=== PATIENT | female | born 1945 | race Caucasian/White ===

== ENCOUNTER 2022-03-13 13:12 | Inpatient (IN) | payer MEDICARE ==
[2022-03-13] MEDS ORDERED: MORPHINE SULFATE 4 MG/ML SYRINGE IVP STA (14:37)
[2022-03-13] MEDS ORDERED: ACETAMINOPHEN TAB 325 MG TAB PO PRN (14:40)
[2022-03-13] MEDS ORDERED: HYDROcodone/APAP 5-325MG 1 EACH TAB PO PRN (14:40)
[2022-03-13] MEDS ORDERED: NALOXONE 0.4 MG/ML 1 ML VIAL IV PRN (14:40)
--- NOTE | 2022-03-13 14:40 | ED ---
General Adult HPI - General Chief complaint: Altered Mental Status Stated complaint: cancer pt, pain management Time Seen by Provider: 03/13/22 13:21 Source: patient, family, RN/MD (I did speak with Dr. Barnett who would like patient admitted with pulmonary consult), RN notes reviewed Mode of arrival: ambulatory Limitations: no limitations - History of Present Illness Initial comments: Patient is a pleasant 76. Female presenting to emergency Department with concerns for lung mass. Patient had computed tomography scan done at outside facility a week ago with right upper lung mass 4 cm. Patient has been having right shoulder discomfort and intermittent shortness of breath however worse of breath is chronic. A leiva has had a little bit of forgetfulness over the past week. - Related Data Allergies Allergy/AdvReac Type Severity Reaction Status Date / Time No Known Allergies Allergy Verified 03/13/22 13:35 Review of Systems ROS Statement: Those systems with pertinent positive or pertinent negative responses have been documented in the HPI. ROS Other: All systems not noted in ROS Statement are negative. Constitutional: Denies: fever Eyes: Denies: eye pain ENT: Denies: ear pain Respiratory: Reports: as per HPI, dyspnea Cardiovascular: Denies: chest pain Endocrine: Denies: fatigue Gastrointestinal: Denies: abdominal pain Genitourinary: Denies: dysuria Musculoskeletal: Reports: as per HPI Skin: Denies: rash Neurological: Reports: as per HPI, confusion. Denies: weakness Past Medical History Past Medical History: Cancer, COPD History of Any Multi-Drug Resistant Organisms: None Reported Additional Past Surgical History / Comment(s): AAA repair Past Psychological History: No Psychological Hx Reported Smoking Status: Current every day smoker Past Alcohol Use History: None Reported Past Drug Use History: None Reported General Exam Limitations: no limitations General appearance: alert, in no apparent distress Head exam: Present: atraumatic, normocephalic Eye exam: Present: normal appearance, PERRL, EOMI ENT exam: Present: normal oropharynx Neck exam: Present: normal inspection Respiratory exam: Present: wheezes (Mild). Absent: respiratory distress Cardiovascular Exam: Present: regular rate, normal rhythm GI/Abdominal exam: Present: soft. Absent: tenderness Extremities exam: Present: normal inspection Back exam: Present: tenderness (Minimal tenderness right scapular region) Neurological exam: Present: alert Psychiatric exam: Present: normal affect, normal mood Skin exam: Present: normal color Course Vital Signs 03/13/22 13:35 Temperature 97.2 F L Pulse Rate 86 Respiratory 16 Rate Blood Pressure 121/74 O2 Sat by Pulse 100 Oximetry Medical Decision Making - Medical Decision Making Case was earlier discussed with Dr. Barnett who wants patient admitted for pain control and pulmonary consult and MRI of the brain. Family is made aware of plan as well as patient. Case also discussed with Dr. Christensen, who will admit for Dr. crowley. Disposition Clinical Impression: Altered mental status, Lung mass Disposition: ADMITTED IP TO THIS HOSP Is patient prescribed a controlled substance at d/c from ED?: No Time of Disposition: 15:01
--- NOTE | 2022-03-13 14:50 | XR ---
EXAMINATION TYPE: XR chest 2V DATE OF EXAM: 03/13/2022 COMPARISON: 11/25/2012 INDICATION: Lung mass TECHNIQUE: Frontal and lateral views of the chest are obtained. FINDINGS: The heart size is normal. The pulmonary vasculature is normal. There is a posterior right upper lobe opacification. Findings can be compatible with patient's lung mass. IMPRESSION: 1. Right upper lobe consolidation can correlate with the patient's reported neoplasm.
[2022-03-13 15:26] LABS: Basophils # (A) 0.1 k/uL (0-0.2); Basophils % (A) 1 %; Eosinophils % (A) 0 %; HCT 31.9 % (34.0-46.0); HGB 9.7 gm/dL (11.4-16.0); Hypochromasia Moderate; Lymphocytes # (A) 0.6 k/uL (1.0-4.8); Lymphocytes % (A) 6 %; MCH 26.2 pg (25.0-35.0); MCHC 30.6 g/dL (31.0-37.0); MCV 85.7 fL (80.0-100.0); Mean Platelet Volume 8.1; Monocytes # (A) 0.5 k/uL (0-1.0); Monocytes % (A) 5 %; Neutrophils # (A) 9.9 k/uL (1.3-7.7); Neutrophils % (A) 88 %; Platelet Count 316 k/uL (150-450); RBC 3.72 m/uL (3.80-5.40); RDW 14.9 % (11.5-15.5); WBC 11.3 k/uL (3.8-10.6)
[2022-03-13 15:39] LABS: ALT 13 U/L (4-34); AST 22 U/L (14-36); African American GFR (CKD) >90 (>60 ml/min/1.73 sqM); Albumin 3.8 g/dL (3.5-5.0); Alkaline Phosphatase 85 U/L (38-126); Anion Gap 10 mmol/L; Blood Urea Nitrogen 14 mg/dL (7-17); Calcium 9.8 mg/dL (8.4-10.2); Carbon Dioxide 30 mmol/L (22-30); Chloride 96 mmol/L (98-107); Glucose 100 mg/dL (74-99); Non-African American GFR(CKD) 89 (>60 ml/min/1.73 sqM); Potassium 3.1 mmol/L (3.5-5.1); Sodium 136 mmol/L (137-145); Total Bilirubin 0.6 mg/dL (0.2-1.3); Total Protein 7.3 g/dL (6.3-8.2)
[2022-03-13 15:41] LABS: Partial Thromboplastin Time 22.4 sec (22.0-30.0); Prothrombin Time 10.7 sec (9.0-12.0)
[2022-03-13] MEDS: MORPHINE SULFATE 4 MG/ML SYRINGE IV PRN ×2 (17:27→22:05)
[2022-03-13] MEDS: ALBUTEROL NEBULIZED 2.5 MG/3 ML INHALATION SCH (19:40)
[2022-03-13] MEDS ORDERED: ALBUTEROL NEBULIZED 2.5 MG/3 ML INHALATION PRN (19:43)
--- NOTE | 2022-03-13 22:37 | MR ---
EXAMINATION TYPE: MR brain wo/w con DATE OF EXAM: 03/13/2022 COMPARISON: None HISTORY: ams, lung mass CONTRAST: Standard multiplanar, multisequence MRI departmental protocol images were obtained without contrast a nd with 4 mL intravenous Gadavist gadolinium contrast. There is diffuse cerebral cortical atrophy. There is no mass effect nor midline shift. No evidence of intracranial hemorrhage. Diffusion images show no sign of an acute infarct. there are scattered are as of white matter increased signal around the lateral ventricles that measure up to 8 mm. Total numb ers less than 20. The brainstem is intact. Cerebellum is intact. There is thinning of the corpus call osum. There is endplate spur formation posteriorly at C4-5 with some spinal stenosis and effacement o f the spinal cord. The contrast images show normal enhancement of the venous sinuses. I see no pathologic enhancement. IMPRESSION: Cerebral atrophy. White matter signal changes that are nonenhancing and consistent with some microvas cular ischemia. Demyelinating disease also possible. No evidence of metastatic disease.
[2022-03-14] MEDS: FAMOTIDINE 20 MG TAB PO SCH ×2 (07:18→08:25)
--- NOTE | 2022-03-14 08:06 | P.CNPUL ---
History of Present Illness Consult date: 03/13/22 Reason for consult: lung mass History of present illness: This is a 76 year old female patient who was admitted through the oncology office for a right upper mass. This patient has been experiencing pain across the right lateral posterior chest wall and for that reason the patient was admitted to [facility] with a CAT scan of the chest was done on 03/05/2022 and the patient was found to have a large cavitating mass in the right upper lobe which was very much occupying the entire right upper lobe area with central cavitation and surrounding airspace disease. There is also evidence of mediastinal lymphadenopathy and addition to extensive emphysema bilaterally. The patient is a chronic smoker who continues to smoke a half pack of cigarettes a day. She's been experiencing exertional dyspnea, weight loss, diminished appetite and addition to right lateral chest wall pain. No pleurisy. No hemoptysis. The patient has been also having some altered mentation, episodic, without any focal neurological deficits. She was seen at oncologist's office and she was admitted to the hospital to expedite her workup. Daughters at the bedside. Unsure if they want to proceed with a lung biopsy. Review of Systems Constitutional: Reports fatigue, Reports weakness, Reports weight loss Eyes: denies as per HPI, denies blurred vision, denies bulging eye, denies decreased vision, denies diplopia, denies discharge, denies dry eye, denies irritation, denies itching, denies pain, denies photophobia, denies loss of peripheral vision, denies loss of vision, denies tunnel vision/blind spots Ears: deny: decreased hearing, ear discharge, earache, tinnitus Ears, nose, mouth and throat: Reports as per HPI Breasts: absent: as per HPI, change in shape, gynecomastia, masses, nipple discharge, pain, skin changes, swelling Cardiovascular: Reports decreased exercise tolerance, Reports shortness of breath Respiratory: Reports cough, Reports dyspnea, Reports wheezing Gastrointestinal: Reports as per HPI Genitourinary: Reports as per HPI Menstruation: Reports as per HPI Musculoskeletal: Reports as per HPI Musculoskeletal: absent: ankle pain, ankle stiffness, ankle swelling Neurological: Reports as per HPI Psychiatric: Reports as per HPI Endocrine: Reports as per HPI Hematologic/Lymphatic: Reports as per HPI Allergic/Immunologic: Reports as per HPI Past Medical History Past Medical History: COPD Additional Past Medical History / Comment(s): AAA with previos AAA repair, COPD History of Any Multi-Drug Resistant Organisms: None Reported Additional Past Surgical History / Comment(s): AAA repair Past Psychological History: No Psychological Hx Reported Smoking Status: Current every day smoker Past Alcohol Use History: None Reported Past Drug Use History: None Reported Medications and Allergies Home Medications Medication Instructions Recorded Confirmed Type Albuterol Sulfate [Albuterol 1 puff PO RT-Q4H 03/13/22 03/13/22 History Sulfate Hfa] Cyanocobalamin (Vitamin B-12) 2,500 mcg PO DAILY 03/13/22 03/13/22 History [Vitamin B-12] Famotidine 40 mg PO DAILY 03/13/22 03/13/22 History Fluticasone/Umeclidin/Vilanter 1 puff INHALATION RT-DAILY 03/13/22 03/13/22 History [Trelegy Ellipta 100-62.5-25] HYDROcodone/APAP 10-325MG [[place] 1 tab PO BID 03/13/22 03/13/22 History 10-325] Allergies Allergy/AdvReac Type Severity Reaction Status Date / Time benzonatate Allergy Vomiting Verified 03/13/22 15:38 Physical Exam Vitals: Vital Signs Temp Pulse Resp BP Pulse Ox 03/13/22 19:48 84 03/13/22 19:43 77 03/13/22 17:31 77 16 122/79 95 03/13/22 16:54 16 03/13/22 13:35 97.2 F L 86 16 121/74 100 Intake and Output 03/13/22 03/13/22 03/14/22 14:59 22:59 06:59 Other: Weight 39.009 kg Calm and comfortable, breathing is nonlabored, body mass index is 16.8 Head exam was generally normal. There was no scleral icterus or corneal arcus. Mucous membranes were moist. Neck was supple and without jugular venous distension, thyromegaly, or carotid bruits. Carotids were easily palpable bilaterally. There was no adenopathy. Lungs sounds are diminished bilaterally along with that there is some scattered expiratory wheezes throughout the lung mauricio Cardiac exam revealed the PMI to be normally situated and sized. The rhythm was regular and no extrasystoles were noted during several minutes of auscultation. The first and second heart sounds were normal and physiologic splitting of the second heart sound was noted. There were no murmurs, rubs, clicks, or gallops. Abdominal exam revealed normal bowel sounds. The abdomen was soft, non-tender, and without masses, organomegaly, or appreciable enlargement of the abdominal aorta. Examination of the extremities revealed easily palpable radial, femoral and pedal pulses. There was no cyanosis, clubbing or edema. Neurologically the patient was awake and alert at the time of my evaluation. No focal neurological deficits. Results - Laboratory Findings CBC and BMP: 03/13/22 15:19 03/13/22 15:19 PT/INR, D-dimer PT 10.7 sec (9.0-12.0) 03/13/22 15:19 INR 1.0 (<1.2) 03/13/22 15:19 Abnormal lab findings: Abnormal Labs 03/13/22 03/13/22 15:19 15:19 WBC 11.3 H RBC 3.72 L Hgb 9.7 L Hct 31.9 L MCHC 30.6 L Neutrophils # 9.9 H Lymphocytes # 0.6 L Sodium 136 L Potassium 3.1 L Chloride 96 L Glucose 100 H - Diagnostic Findings Chest x-ray: image reviewed Assessment and Plan Plan: Large right upper lobe mass with central cavitation along with some peripheral airspace disease and mediastinal lymphadenopathy, highly suggestive underlying primary bronchogenic carcinoma Chest wall pain likely secondary to local invasion from an underlying malignancy COPD Chronic smoking Shortness of breath secondary to above Abdominal aortic aneurysm postrepair Plan MRI of the brain Check pro calcitonin level Hold off any antibiotic coverage for now Use DuoNeb the last treatment [id number] Discussed with the patient and her family the need for bronchoscopy. She was quite hesitant to undergo the procedure. She wanted first to proceed with an MRI of the brain to see if there is any INTEGRATED LOGISTICS PROGRAMS DIRECTOR metastases. Based on that, she was going to make a decision after discussing a consulting this with the family and accordingly decide on the bronchoscopy. Obviously, bronchoscopy will be needed for tissue diagnosis. Case was discussed with oncology.
[2022-03-14] MEDS: MORPHINE SULFATE 4 MG/ML SYRINGE IV PRN ×2 (09:53→23:13)
[2022-03-14] MEDS: ALBUTEROL NEBULIZED 2.5 MG/3 ML INHALATION SCH ×2 (09:58→11:59)
--- NOTE | 2022-03-14 12:22 | P.PN ---
Subjective Progress Note Date: 03/14/22 This is a 76 year old female patient who was admitted through the oncology office for a right upper mass. This patient has been experiencing pain across the right lateral posterior chest wall and for that reason the patient was admitted to [facility] with a CAT scan of the chest was done on 03/05 and the patient was found to have a large cavitating mass in the right upper lobe which was very much occupying the entire right upper lobe area with central cavitation and surrounding airspace disease. There is also evidence of mediastinal lymphadenopathy and addition to extensive emphysema bilaterally. The patient is a chronic smoker who continues to smoke a half pack of cigarettes a day. She's been experiencing exertional dyspnea, weight loss, diminished appetite and addition to right lateral chest wall pain. No pleurisy. No hemoptysis. The patient has been also having some altered mentation, episodic, without any focal neurological deficits. She was seen at oncologist's office and she was admitted to the hospital to expedite her workup. Daughters at the bedside. Unsure if they want to proceed with a lung biopsy. Today's evaluation of 03/14/2022, the patient is clinically stable. MRI of the brain was done and showed atrophy and there is no evidence of any ANALYSIS EVALUATOR metast ases. The patient is considering the bronchoscopy for tissue diagnosis and she has agreed to the procedure to establish diagnosis. No hemoptysis. She is still having pain across her right lateral posterior chest wall area. Objective - Vital Signs Vital signs: Vital Signs Temp 98.4 F 03/14/22 12:04 Pulse 72 03/14/22 12:04 Resp 16 03/14/22 12:04 BP 110/70 03/14/22 12:04 Pulse Ox 98 03/14/22 12:04 FiO2 Intake & Output 03/13/22 03/14/22 03/14/22 18:59 06:59 18:59 Weight 39.009 kg 39.009 kg - Exam Calm and comfortable, breathing is nonlabored, body mass index is 16.8 Head exam was generally normal. There was no scleral icterus or corneal arcus. Mucous membranes were moist. Neck was supple and without jugular venous distension, thyromegaly, or carotid bruits. Carotids were easily palpable bilaterally. There was no adenopathy. Lungs sounds are diminished bilaterally along with that there is some scattered expiratory wheezes throughout the lung mauricio Cardiac exam revealed the PMI to be normally situated and sized. The rhythm was regular and no extrasystoles were noted during several minutes of auscultation. The first and second heart sounds were normal and physiologic splitting of the second heart sound was noted. There were no murmurs, rubs, clicks, or gallops. Abdominal exam revealed normal bowel sounds. The abdomen was soft, non-tender, and without masses, organomegaly, or appreciable enlargement of the abdominal aorta. Examination of the extremities revealed easily palpable radial, femoral and pedal pulses. There was no cyanosis, clubbing or edema. Neurologically the patient was awake and alert at the time of my evaluation. No focal neurological deficits. - Labs CBC & Chem 7: 03/13/22 15:19 03/13/22 15:19 Labs: Abnormal Lab Results - Last 24 Hours (Table) 03/13/22 03/13/22 Range/Units 15:19 15:19 WBC 11.3 H (3.8-10.6) k/uL RBC 3.72 L (3.80-5.40) m/uL Hgb 9.7 L (11.4-16.0) gm/dL Hct 31.9 L (34.0-46.0) % MCHC 30.6 L (31.0-37.0) g/dL Neutrophils # 9.9 H (1.3-7.7) k/uL Lymphocytes # 0.6 L (1.0-4.8) k/uL Sodium 136 L (137-145) mmol/L Potassium 3.1 L (3.5-5.1) mmol/L Chloride 96 L (98-107) mmol/L Glucose 100 H (74-99) mg/dL Assessment and Plan Plan: Large right upper lobe mass with central cavitation along with some peripheral airspace disease and mediastinal lymphadenopathy, highly suggestive underlying primary bronchogenic carcinoma Chest wall pain likely secondary to local invasion from an underlying malignancy COPD Chronic smoking Shortness of breath secondary to above Abdominal aortic aneurysm postrepair Plan MRI of the brain done and the results were negative Check pro calcitonin level and the levels are still pending Hold off any antibiotic coverage for now Use DuoNeb the last treatment [id number] The patient is considering bronchoscopy. I think this can be done either inpatient or an outpatient. If there is an opening in the operating room tomorrow, I'm going to set her up for the procedure to be done tomorrow. Otherwise, she'll be released home to be done on outpatient basis.
[2022-03-14] MEDS ORDERED: FAMOTIDINE 20 MG TAB PO SCH (12:45)
[2022-03-14] MEDS: CYANOCOBALAMIN 500 MCG TAB PO SCH (13:12)
[2022-03-14] MEDS: HYDROcodone/APAP 10-325MG 1 EACH TAB PO SCH ×2 (13:14→21:32)
[2022-03-14 14:00] LABS: Basophils # (A) 0.1 k/uL (0-0.2); Basophils % (A) 1 %; Eosinophils # (A) 0.1 k/uL (0-0.7); Eosinophils % (A) 0 %; HCT 28.2 % (34.0-46.0); HGB 8.7 gm/dL (11.4-16.0); Hypochromasia Moderate; Lymphocytes % (A) 8 %; MCH 26.7 pg (25.0-35.0); MCHC 30.9 g/dL (31.0-37.0); MCV 86.5 fL (80.0-100.0); Mean Platelet Volume 8.2; Monocytes # (A) 0.6 k/uL (0-1.0); Monocytes % (A) 5 %; Neutrophils % (A) 86 %; Platelet Count 347 k/uL (150-450); RBC 3.26 m/uL (3.80-5.40); RDW 14.9 % (11.5-15.5); WBC 12.8 k/uL (3.8-10.6)
[2022-03-14 14:16] LABS: ALT 14 U/L (4-34); AST 24 U/L (14-36); African American GFR (CKD) >90 (>60 ml/min/1.73 sqM); Albumin 3.2 g/dL (3.5-5.0); Alkaline Phosphatase 64 U/L (38-126); Anion Gap 6 mmol/L; Blood Urea Nitrogen 16 mg/dL (7-17); Calcium 9.3 mg/dL (8.4-10.2); Carbon Dioxide 31 mmol/L (22-30); Chloride 95 mmol/L (98-107); Globulin 3.2 g/dL; Glucose 136 mg/dL (74-99); Non-African American GFR(CKD) 84 (>60 ml/min/1.73 sqM); Potassium 3.5 mmol/L (3.5-5.1); Sodium 132 mmol/L (137-145); Total Bilirubin 0.4 mg/dL (0.2-1.3); Total Protein 6.4 g/dL (6.3-8.2)
--- NOTE | 2022-03-14 14:38 | P.CONS ---
History of Present Illness - Reason for Consult Consult date: 03/14/22 New lung mass Requesting physician: Marty Kolb - Chief Complaint intractable pain, confusion - History of Present Illness Mrs. Jean-Baptiste is a very pleasant female who was referred to Dr. Barnett as she presented with c/o dyspnea and right shoulder pain of about 2 months duration, she was referred to [facility] ER for CTA chest to r/o PE since she has a history of prior DVT when she had surgeries in the past. She had CT of chest on 03/05/2022 which revealed 9 cm cavitary mass in RUL of lung, 3 cm subcarinal node, no PE. She reports feeling tired, lost about 80 pounds within the last 2 months, she has been having intermittent confusion and loosing balance, significant right shoulder pain, 10/10, radiation to anterior right chest, has been taking 2 norco twice a day without significant relief, very tired and weak, has significant exertional dyspnea, dry cough. When she came to the Office yesterday for her 1st visit it was felt that pt required a higher level of care for pain control. She was sent to ER for work up for pain control and confusion. Pulmonary consult for assessment and plan for biopsy of mass. I saw patient today in consult she is complaining of right scapular pain, it does make her arm feels weak but, she still has full range of motion of her right upper extremity, patient states that she is tolerating oral intake, has no chest pain, nausea, acute changes in her bowel or bladder habits, she is ambulatory and denies any significant fatigue to me. Review of Systems 10 point ROS is neg except as stated in HPI Past Medical History Past Medical History: COPD, Deep Vein Thrombosis (DVT) Additional Past Medical History / Comment(s): AAA, COPD, PUD History of Any Multi-Drug Resistant Organisms: None Reported Additional Past Surgical History / Comment(s): AAA repair Past Psychological History: No Psychological Hx Reported Smoking Status: Current every day smoker (1 ppd since 1975) Past Alcohol Use History: None Reported Past Drug Use History: None Reported Medications and Allergies Home Medications Medication Instructions Recorded Confirmed Type Albuterol Sulfate [Albuterol 1 puff PO RT-Q4H 03/13/22 03/13/22 History Sulfate Hfa] Cyanocobalamin (Vitamin B-12) 2,500 mcg PO DAILY 03/13/22 03/13/22 History [Vitamin B-12] Famotidine 40 mg PO DAILY 03/13/22 03/13/22 History Fluticasone/Umeclidin/Vilanter 1 puff INHALATION RT-DAILY 03/13/22 03/13/22 History [Trelegy Ellipta 100-62.5-25] HYDROcodone/APAP 10-325MG [[place] 1 tab PO BID 03/13/22 03/13/22 History 10-325] Allergies Allergy/AdvReac Type Severity Reaction Status Date / Time benzonatate Allergy Vomiting Verified 03/13/22 15:38 Physical Exam Vitals: Vital Signs Temp Pulse Resp BP Pulse Ox 03/14/22 02:07 76 18 113/55 95 03/13/22 19:48 84 03/13/22 19:43 77 03/13/22 17:31 77 16 122/79 95 03/13/22 16:54 16 03/13/22 13:35 97.2 F L 86 16 121/74 100 - Constitutional Petite, no acute distress General appearance: average body habitus, cooperative, no acute distress - EENT Eyes: anicteric sclerae, EOMI ENT: hearing grossly normal, normal oropharynx - Neck Neck: no lymphadenopathy - Respiratory Respiratory: bilateral: diminished - Cardiovascular Rhythm: regular Heart sounds: normal: S1, S2 Abnormal Heart Sounds: no systolic murmur, no diastolic murmur, no rub, no S3 Gallop, no S4 Gallop, no click, no other leg Peripheral Edema: bilateral: None - Gastrointestinal General gastrointestinal: no absent bowel sounds, no decreased bowel sounds, no distended, no hepatomegaly, no hyperactive bowel sounds, normal bowel sounds, no organomegaly, no rigid, no scaphoid, soft, no splenomegaly, no tenderness, no umbilical hernia, no ventral hernia - Integumentary Integumentary: normal - Neurologic Neurologic: CNII-XII intact - Musculoskeletal Musculoskeletal: strength equal bilaterally - Psychiatric Psychiatric: A&O x's 3, appropriate affect, intact judgment & insight Results CBC & Chem 7: 03/14/22 13:43 03/14/22 13:43 Labs: Abnormal Lab Results - Last 24 Hours (Table) 03/13/22 03/13/22 Range/Units 15:19 15:19 WBC 11.3 H (3.8-10.6) k/uL RBC 3.72 L (3.80-5.40) m/uL Hgb 9.7 L (11.4-16.0) gm/dL Hct 31.9 L (34.0-46.0) % MCHC 30.6 L (31.0-37.0) g/dL Neutrophils # 9.9 H (1.3-7.7) k/uL Lymphocytes # 0.6 L (1.0-4.8) k/uL Sodium 136 L (137-145) mmol/L Potassium 3.1 L (3.5-5.1) mmol/L Chloride 96 L (98-107) mmol/L Glucose 100 H (74-99) mg/dL Comments: EEG/Neurology report reviewed. MRI - head: report reviewed (no metastatic disease reported) Assessment and Plan (1) Intractable pain Current Visit: Yes Status: Acute Priority: High Code(s): R52 - PAIN, UNSPECIFIED SNOMED Code(s): 65226776 (2) Altered mental status Current Visit: Yes Status: Acute Priority: High Code(s): R41.82 - ALTERED MENTAL STATUS, UNSPECIFIED SNOMED Code(s): 948438926 (3) Lung mass Current Visit: Yes Status: Acute Priority: High Code(s): R91.8 - OTHER NONSPECIFIC ABNORMAL FINDING OF LUNG FIELD SNOMED Code(s): 510303243 Plan: Dr. Barnett discussed case with Dr. Pichardo. Pulmonary consulted for biopsy of lung mass for diagnosis. NGS and PD-L1 testing on tissue to evaluate for possible mutations and targeted therapy. Pain mgmt ongoing, titrate as needed for comfort. Medications for the prevention of narcotic induced constipation GI/DVT prophylaxis MRI brain neg for mets. Possibly confusion r/t significant uncontrolled pain. Patient denies having any confusion or unilateral deficits-she said that that is her daughter's perception.
[2022-03-14] MEDS: IPRATROPIUM-ALBUTEROL 3 ML NEB INHALATION SCH ×3 (15:24→23:07)
[2022-03-14] MEDS ORDERED: ALBUTEROL NEBULIZED 2.5 MG/3 ML INHALATION SCH (16:00)
--- NOTE | 2022-03-14 17:04 | P.HPIM ---
History of Present Illness H&P Date: 03/14/22 Laurie Jean-Baptiste, is a 76-year-old female who presented to [facility] emergency room with a chief complaint of worsening shortness of breath and right shoulder pain. Patient stated that her symptoms started 2 months ago and has been worsening, she was evaluated at [facility] and had a computed tomography scan angiogram of the chest on 03/05/2022 that revealed a cavitary mass in the right upper lobe, there was no evidence of pulmonary embolism, patient was referred to Dr. Mortensen oncologist, he evaluated her and referred her to emergency room due to significant shortness of breath. She was evaluated in the emergency room vital examination on presentation revealed a temperature of 97.2 pulse 86 respirations 16 pressure 121/74 pulse ox 100% on room air Laboratory data revealed a white blood count of 11.3 hemoglobin 9.7 platelet count 316 sodium 136 potassium 3.1 chloride 96 CO2 30 BUN 14 creatinine 0.6 Testing in the emergency room, chest x-ray done in the emergency room revealed right upper lobe opacification. Patient was admitted to medical floor for further evaluation and treatment, MRI of the brain was ordered to rule out metastatic disease, pulmonary consultation and oncology consultation were requested. Past medical history is significant for history of COPD history of abdominal aortic aneurysm with repair, history of tobacco use, and previous history of DVT Past Medical History Past Medical History: COPD, Deep Vein Thrombosis (DVT) Additional Past Medical History / Comment(s): AAA, COPD, PUD History of Any Multi-Drug Resistant Organisms: None Reported Additional Past Surgical History / Comment(s): AAA repair Past Psychological History: No Psychological Hx Reported Smoking Status: Current every day smoker (1 ppd since 1975) Past Alcohol Use History: None Reported Past Drug Use History: None Reported Medications and Allergies Home Medications Medication Instructions Recorded Confirmed Type Albuterol Sulfate [Albuterol 1 puff PO RT-Q4H 03/13/22 03/13/22 History Sulfate Hfa] Cyanocobalamin (Vitamin B-12) 2,500 mcg PO DAILY 03/13/22 03/13/22 History [Vitamin B-12] Famotidine 40 mg PO DAILY 03/13/22 03/13/22 History Fluticasone/Umeclidin/Vilanter 1 puff INHALATION RT-DAILY 03/13/22 03/13/22 History [Trelegy Ellipta 100-62.5-25] HYDROcodone/APAP 10-325MG [[place] 1 tab PO BID 03/13/22 03/13/22 History 10-325] Allergies Allergy/AdvReac Type Severity Reaction Status Date / Time benzonatate Allergy Vomiting Verified 03/13/22 15:38 Physical Exam Vitals: Vital Signs Temp Pulse Pulse Resp BP BP Pulse Ox 03/14/22 12:04 98.4 F 72 16 110/70 98 03/14/22 10:11 74 03/14/22 09:59 74 03/14/22 09:50 74 16 121/58 98 03/14/22 02:07 76 18 113/55 95 03/13/22 19:48 84 03/13/22 19:43 77 03/13/22 17:31 77 16 122/79 95 03/13/22 16:54 16 03/13/22 13:35 97.2 F L 86 16 121/74 100 Intake and Output 03/13/22 03/14/22 03/14/22 22:59 06:59 14:59 Other: Weight 39.009 kg In general patient is alert and oriented x 3 in no distress HEENT head normocephalic and atraumatic Neck is supple no JVD no goiter no lymphadenopathy no carotid bruit Chest examination reveals a scattered crackles in both lung mauricio no wheezing Cardiac exam reveals regular heart sounds S1 and S2 no gallops no murmurs Abdomen is soft nontender no organomegaly with normal bowel sounds Extremity exam reveals no edema no cyanosis or clubbing Neurological examination reveals no gross focal deficits Results CBC & Chem 7: 03/14/22 13:43 03/14/22 13:43 Labs: Abnormal Lab Results - Last 24 Hours (Table) 03/13/22 03/13/22 Range/Units 15:19 15:19 WBC 11.3 H (3.8-10.6) k/uL RBC 3.72 L (3.80-5.40) m/uL Hgb 9.7 L (11.4-16.0) gm/dL Hct 31.9 L (34.0-46.0) % MCHC 30.6 L (31.0-37.0) g/dL Neutrophils # 9.9 H (1.3-7.7) k/uL Lymphocytes # 0.6 L (1.0-4.8) k/uL Sodium 136 L (137-145) mmol/L Potassium 3.1 L (3.5-5.1) mmol/L Chloride 96 L (98-107) mmol/L Glucose 100 H (74-99) mg/dL Thrombosis Risk Factor Assmnt - Choose All That Apply Any of the Below Risk Factors Present?: Yes Each Factor Represents 1 point: Abnormal pulmonary function (COPD), Serious lung disease incl. pneumonia (< 1month) Other Risk Factors: Yes Each Risk Factor Represents 2 Points: Malignancy Each Risk Factor Represents 3 Points: Age 75 years or older Other congenital or acquired thrombophilia - If yes, enter type in comment: No Thrombosis Risk Factor Assessment Total Risk Factor Score: 7 Thrombosis Risk Factor Assessment Level: High Risk Assessment and Plan Plan: The right upper lobe pulmonary mass, patient is admitted to oncology floor, pulmonary consultation was requested for possible bronchoscopy and biopsy, MRI of the brain was ordered to rule out metastatic brain disease. Underlying history of COPD, stable at this time no evidence of exacerbation, home inhalers reviewed and reordered Underlying history of tobacco use Previous history of abdominal aortic aneurysm with repair Previous history of lower extremity DVT At this time patient was seen and examined Home medications reviewed and reordered Consultation for pulmonary and oncology requested For DVT prophylaxis we will use subcu Lovenox For GI prophylaxis we will use famotidine Will follow closely
[2022-03-14] MEDS: ENOXAPARIN 40 MG/0.4 ML SYRINGE SQ SCH (17:43)
[2022-03-14] MEDS: LIDOCAINE 5% PATCH TOPICAL SCH (17:56)
[2022-03-14] MEDS: SENNOSIDES-DOCUSATE SODIUM 1 EACH TAB PO SCH (21:34)
[2022-03-15] MEDS: IPRATROPIUM-ALBUTEROL 3 ML NEB INHALATION SCH ×6 (03:19→23:27)
[2022-03-15] MEDS: SYMBICORT 80-4.5 MCG INHALER INHALATION SCH ×2 (07:46→19:46)
[2022-03-15] MEDS: CYANOCOBALAMIN 500 MCG TAB PO SCH (08:48)
[2022-03-15] MEDS: ENOXAPARIN 40 MG/0.4 ML SYRINGE SQ SCH ×2 (08:48→08:51)
[2022-03-15] MEDS: FAMOTIDINE 20 MG TAB PO SCH (08:49)
[2022-03-15] MEDS: HYDROcodone/APAP 10-325MG 1 EACH TAB PO SCH ×2 (08:49→21:25)
[2022-03-15] MEDS: SENNOSIDES-DOCUSATE SODIUM 1 EACH TAB PO SCH ×2 (08:49→21:25)
[2022-03-15] MEDS: LIDOCAINE 5% PATCH TOPICAL SCH (08:50)
[2022-03-15 09:09] LABS: Basophils # (A) 0.04 X 10*3/uL (0.00-0.10); Basophils % (A) 0.4 %; Eosinophils # (A) 0.07 X 10*3/uL (0.04-0.35); Eosinophils % (A) 0.7 %; HCT 28.4 % (37.2-46.3); HGB 8.3 g/dL (12.0-15.0); Immature Grans, Automated 0.4 %; Lymphocytes # (A) 0.94 X 10*3/uL (0.90-5.00); MCH 24.8 pg (27.0-32.0); MCHC 29.2 g/dL (32.0-37.0); MCV 84.8 fL (80.0-97.0); Mean Platelet Volume 11.1 fL (9.5-12.2); Monocytes # (A) 0.92 X 10*3/uL (0.20-1.00); Monocytes % (A) 8.8 %; NRBC Per 100 WBC 0 /100 WBCS (0.0-0.0); Neutrophils # (A) 8.44 X 10*3/uL (1.80-7.70); Neutrophils % (A) 80.7 %; Platelet Count 324 X 10*3/uL (140-440); RBC 3.35 X 10*6/uL (4.10-5.20); WBC 10.45 X 10*3/uL (4.50-10.00)
[2022-03-15 09:21] LABS: African American GFR (CKD) 102.6 (60.0-200.0); Albumin/Globulin Ratio 1.03 (1.60-3.17); Anion Gap 11.7 mmol/L (10.00-18.00); BUN/Creat Ratio 21.33 Ratio (12.00-20.00); Blood Urea Nitrogen 12.8 mg/dL (9.0-27.0); Calcium 9.7 mg/dL (8.7-10.3); Carbon Dioxide 29.3 mmol/L (20.0-27.5); Globulin 2.9 g/dL (1.6-3.3); Non-African American GFR(CKD) 88.5 (60.0-200.0); Potassium 4.1 mmol/L (3.5-5.5); Total Bilirubin 0.3 mg/dL (0.30-1.20); Total Protein 5.9 g/dL (6.2-8.2)
[2022-03-15] MEDS: methylPREDNISolone SOD SUCCI 125 MG/2 ML VIAL IV SCH ×3 (09:43→21:26)
--- NOTE | 2022-03-15 11:56 | P.PN ---
Subjective Progress Note Date: 03/15/22 This is a 76 year old female patient who was admitted through the oncology office for a right upper mass. This patient has been experiencing pain across the right lateral posterior chest wall and for that reason the patient was admitted to [facility] with a CAT scan of the chest was done on 03/05 and the patient was found to have a large cavitating mass in the right upper lobe which was very much occupying the entire right upper lobe area with central cavitation and surrounding airspace disease. There is also evidence of mediastinal lymphadenopathy and addition to extensive emphysema bilaterally. The patient is a chronic smoker who continues to smoke a half pack of cigarettes a day. She's been experiencing exertional dyspnea, weight loss, diminished appetite and addition to right lateral chest wall pain. No pleurisy. No hemoptysis. The patient has been also having some altered mentation, episodic, without any focal neurological deficits. She was seen at oncologist's office and she was admitted to the hospital to expedite her workup. Daughters at the bedside. Unsure if they want to proceed with a lung biopsy. Today's evaluation of 03/14/2022, the patient is clinically stable. MRI of the brain was done and showed atrophy and there is no evidence of any STEEL [employer]ER metast ases. The patient is considering the bronchoscopy for tissue diagnosis and she has agreed to the procedure to establish diagnosis. No hemoptysis. She is still having pain across her right lateral posterior chest wall area. 99 2021, the patient is slightly bronchospastic and wheezy. Otherwise, no major changes in her condition. The patient is nothing by mouth and the patient is going to undergo a bronchoscopy to establish a tissue diagnosis regarding the right upper lobe mass. Objective - Vital Signs Vital signs: Vital Signs Temp 100.8 F H 03/15/22 05:00 Pulse 70 03/15/22 11:36 Resp 16 03/15/22 05:00 BP 118/71 03/15/22 05:00 Pulse Ox 96 03/15/22 05:00 FiO2 Intake & Output 03/14/22 03/15/22 03/15/22 18:59 06:59 18:59 Intake Total 0 Balance 0 Intake: Oral 0 Other: Voiding Method Toilet # Voids 2 1 - Exam Calm and comfortable, breathing is nonlabored, body mass index is 16.8 Head exam was generally normal. There was no scleral icterus or corneal arcus. Mucous membranes were moist. Neck was supple and without jugular venous distension, thyromegaly, or carotid bruits. Carotids were easily palpable bilaterally. There was no adenopathy. Lungs sounds are diminished bilaterally along with that there is some scattered expiratory wheezes throughout the lung mauricio Cardiac exam revealed the PMI to be normally situated and sized. The rhythm was regular and no extrasystoles were noted during several minutes of auscultation. The first and second heart sounds were normal and physiologic splitting of the second heart sound was noted. There were no murmurs, rubs, clicks, or gallops. Abdominal exam revealed normal bowel sounds. The abdomen was soft, non-tender, and without masses, organomegaly, or appreciable enlargement of the abdominal aorta. Examination of the extremities revealed easily palpable radial, femoral and pedal pulses. There was no cyanosis, clubbing or edema. Neurologically the patient was awake and alert at the time of my evaluation. No focal neurological deficits. - Labs CBC & Chem 7: 03/15/22 05:54 03/15/22 05:54 Labs: Abnormal Lab Results - Last 24 Hours (Table) 03/14/22 03/14/22 03/15/22 Range/Units 13:43 13:43 05:54 WBC 12.8 H 10.45 H (3.8-10.6) k/uL RBC 3.26 L 3.35 L (3.80-5.40) m/uL Hgb 8.7 L 8.3 L (11.4-16.0) gm/dL Hct 28.2 L 28.4 L (34.0-46.0) % MCH 24.8 L (27.0-32.0) pg MCHC 30.9 L 29.2 L (31.0-37.0) g/dL RDW 15.0 H (11.5-14.5) % Neutrophils # 11.0 H 8.44 H (1.3-7.7) k/uL Sodium 132 L (137-145) mmol/L Chloride 95 L (98-107) mmol/L Carbon Dioxide 31 H (22-30) mmol/L BUN/Creatinine Ratio (12.00-20.00) Ratio Glucose 136 H (74-99) mg/dL Total Protein (6.2-8.2) g/dL Albumin 3.2 L (3.5-5.0) g/dL Albumin/Globulin Ratio (1.60-3.17) g/dL 03/15/22 Range/Units 05:54 WBC (3.8-10.6) k/uL RBC (3.80-5.40) m/uL Hgb (11.4-16.0) gm/dL Hct (34.0-46.0) % MCH (27.0-32.0) pg MCHC (31.0-37.0) g/dL RDW (11.5-14.5) % Neutrophils # (1.3-7.7) k/uL Sodium (137-145) mmol/L Chloride 95 L (98-107) mmol/L Carbon Dioxide 29.3 H (22-30) mmol/L BUN/Creatinine Ratio 21.33 H (12.00-20.00) Ratio Glucose (74-99) mg/dL Total Protein 5.9 L (6.2-8.2) g/dL Albumin 3.0 L (3.5-5.0) g/dL Albumin/Globulin Ratio 1.03 L (1.60-3.17) g/dL Assessment and Plan Plan: Large right upper lobe mass with central cavitation along with some peripheral airspace disease and mediastinal lymphadenopathy, highly suggestive underlying primary bronchogenic carcinoma Chest wall pain likely secondary to local invasion from an underlying malignancy COPD Chronic smoking Shortness of breath secondary to above Abdominal aortic aneurysm postrepair Plan Start the patient on DuoNeb nebulized treatments around the clock Start the patient IV Solu-Medrol Bronchoscopy today with possibility by Shiva bronchodilators of the right upper lobe MRI of the brain done and the results were negative
[2022-03-15] MEDS ORDERED: fentaNYL (PF) 50 MCG/ML 2 ML AMP ONE (15:50)
[2022-03-15] MEDS ORDERED: PROPOFOL 10 MG/ML 20 ML VIAL IV ONE (15:50)
[2022-03-15] MEDS ORDERED: MIDAZOLAM 2 MG/2 ML VIAL ONE (15:50)
[2022-03-15] MEDS ORDERED: LIDOCAINE 2% INJ 20 MG/ML (2 ML VIAL) ONE (15:50)
[2022-03-15] MEDS ORDERED: HYDROcodone/APAP 15 ML SOLUTION ONE (15:50)
[2022-03-15] MEDS ORDERED: SODIUM CHLORIDE 0.9% 500 ML 500 ML IV ONE (15:55)
[2022-03-15 16:33] VITALS: BMI 16.7
--- NOTE | 2022-03-15 16:45 | P.PN ---
Subjective Progress Note Date: 03/15/22 Principal diagnosis: lung mass In f/u today pt cont to c/o of rt shoulder/scapula pain, she is getting some relief from current pain meds, she refused lidoderm patch. She is hungry, pending bronch and biopsy with Pulmonary Objective - Vital Signs Vital signs: Vital Signs Temp 97.8 F 03/15/22 12:43 Pulse 68 03/15/22 15:43 Resp 18 03/15/22 12:43 BP 107/58 03/15/22 12:43 Pulse Ox 95 03/15/22 12:43 FiO2 Intake & Output 03/14/22 03/15/22 03/15/22 18:59 06:59 18:59 Intake Total 0 Balance 0 Weight 39.009 kg Intake: Oral 0 Other: Voiding Method Toilet # Voids 2 1 - Constitutional General appearance: Present: cooperative, no acute distress, thin (petite) - EENT Eyes: Present: anicteric sclerae, EOMI ENT: Present: hearing grossly normal - Respiratory Respiratory: right: diminished, left: CTA - Cardiovascular Rhythm: regular Heart sounds: normal: S1, S2 Abnormal Heart Sounds: Absent: systolic murmur, diastolic murmur, rub, S3 Gallop, S4 Gallop, click, other - Peripheral edema leg Peripheral Edema: bilateral: None - Gastrointestinal General gastrointestinal: Present: normal bowel sounds, soft - Neurologic Neurologic: Present: CNII-XII intact - Musculoskeletal Musculoskeletal: Present: strength equal bilaterally - Psychiatric Psychiatric: Present: A&O x's 3, appropriate affect, intact judgment & insight - Labs CBC & Chem 7: 03/15/22 05:54 03/15/22 05:54 Labs: Abnormal Lab Results - Last 24 Hours (Table) 03/15/22 03/15/22 03/15/22 Range/Units 05:54 05:54 05:54 WBC 10.45 H (4.50-10.00) X 10*3/uL RBC 3.35 L (4.10-5.20) X 10*6/uL Hgb 8.3 L (12.0-15.0) g/dL Hct 28.4 L (37.2-46.3) % MCH 24.8 L (27.0-32.0) pg MCHC 29.2 L (32.0-37.0) g/dL RDW 15.0 H (11.5-14.5) % Neutrophils # 8.44 H (1.80-7.70) X 10*3/uL Chloride 95 L (96-109) mmol/L Carbon Dioxide 29.3 H (20.0-27.5) mmol/L BUN/Creatinine Ratio 21.33 H (12.00-20.00) Ratio Total Protein 5.9 L (6.2-8.2) g/dL Albumin 3.0 L (3.8-4.9) g/dL Albumin/Globulin Ratio 1.03 L (1.60-3.17) g/dL Procalcitonin 0.10 H (0.02-0.09) ng/mL Assessment and Plan (1) Intractable pain Current Visit: Yes Status: Acute Priority: High Code(s): R52 - PAIN, UNSPECIFIED SNOMED Code(s): 89418102 (2) Altered mental status Current Visit: Yes Status: Acute Priority: High Code(s): R41.82 - ALTERED MENTAL STATUS, UNSPECIFIED SNOMED Code(s): 091471113 (3) Lung mass Current Visit: Yes Status: Acute Priority: High Code(s): R91.8 - OTHER NONSPECIFIC ABNORMAL FINDING OF LUNG FIELD SNOMED Code(s): 310119179 Plan: Dr. Barnett discussed case with Dr. Pichardo yesterday. Pulmonary plan for lung biopsy. Supporitve pulm meds ordered. NGS and PD-L1 testing on tissue to ev aluate for possible mutations and targeted therapy. Pain mgmt cont. Encouraged pt to try alternatives to narcotics including the lidoderm. Realistic pain goals discussed-pain will likely not be 0, may be able to get to 1-3. Medications for the prevention of narcotic induced constipation ordered GI/DVT prophylaxis MRI brain neg for mets. No confusion noted today. Attests: I have seen and examined pt, performed H&P, developed impression and plan of care. Discussed with dictator, agree with dictation, documented as a scribe
--- NOTE | 2022-03-15 17:16 | P.PCN ---
Date of Procedure: 03/15/22 Operative Findings: 1 right upper lobe mass 2 mediastinal lymphadenopathy Postoperative Diagnosis: 1 right upper lobe mass 2 mediastinal lymphadenopathy 3 bronchial stenosis involving the anterior, superior and posterior segments of the right upper lobe with some endobronchial irregularities consistent of cancer. Procedure(s) Performed: 1 flexible bronchoscopy, airway inspection, endobronchial biopsies of the right upper lobe, the bronchial brushings of the right upper lobe, BAL of the right upper lobe 2 endoscopic ultrasound (EBUS) 3 transbronchial needle aspirate of station station 7 lymph nodes Surgeon: Allegra Pichardo Filter Press Operator #1: Lashanda Gonzales (geraldine Zepeda) Estimated Blood Loss (ml): 0 Pathology: other Condition: stable Disposition: same day Operative Findings: After obtaining the consent the patient was taken to the OR suite he was intubated and put on MV by anesthesia then the scope was advanced to the ET tube until the Trachea was seen and it was normal and then the mikala appears normal then the scope advanced to the left main and ANNA LB1-LB3 were seen and no endobronchial lesions were seen then the scope advanced to the lingula and the LB4 and LB5 were seen and no endobronchial lesions were seen the scope retracted and advanced to the left lower lobes LB6 to LB12 were seen one by one and no endobronchial lesions, then the scope was retracted back to the mikala and advanced to the Right main and RUL RB1 and RB2 and RB3 were abnormal as there was significant narrowing of the right upper lobe bronchus and endobronchial tumor occupying various subsegments involving the apical, anterior and posterior segment with significant narrowing of all of the segments and irregular tumor covering the surface. the scope then retracted and advanced to the BI and RML RB4 and RB5 were seen and no endobronchial lesions were seen then it was retracted and advanced to the RLL RB6 to RB12 were seen one by one and no endobronchial lesions. At this point, the flexible bronchoscope was directed to the right upper lobe and under direct visualization, endobronchial mass of the right upper lobe endobronchial irregularities and tumors were obtained without any complications or bleeding. Following that, the bronchial brushing of the right upper lobe was done and subsequently, a bronchioloalveolar lavage of the right upper lobe was done but a total of 6 mL of fluid was infused and 20 mL was aspirated without any major difficulties The flexible bronchoscope was removed and the EBUS was used for lymph node examination of the mediastinum. The patient was found to have a subcarinal mass/lymph node measuring approximately 2 x 2.2 cm in size. I performed transbronchial needle aspirate of station 7 subcarinal lymph node and a total of 5 passes were obtained. No major bleeding and the scope was removed and taken out in total the patient was send to the floor in stable condition. The bronchoscope was removed, the patient was extubated and the patient was transferred to recovery in stable condition.
--- NOTE | 2022-03-15 17:17 | P.PN ---
Subjective Progress Note Date: 03/15/22 Laurie Jean-Baptiste, is a 76-year-old female who presented to [facility] emergency room with a chief complaint of worsening shortness of breath and right shoulder pain. Patient stated that her symptoms started 2 months ago and has been worsening, she was evaluated at [facility] and had a computed tomography scan angiogram of the chest on 03/05/2022 that revealed a cavitary mass in the right upper lobe, there was no evidence of pulmonary embolism, patient was referred to Dr. Mortensen oncologist, he evaluated her and referred her to emergency room due to significant shortness of breath. She was evaluated in the emergency room vital examination on presentation revealed a temperature of 97.2 pulse 86 respirations 16 pressure 121/74 pulse ox 100% on room air Laboratory data revealed a white blood count of 11.3 hemoglobin 9.7 platelet count 316 sodium 136 potassium 3.1 chloride 96 CO2 30 BUN 14 creatinine 0.6 Testing in the emergency room, chest x-ray done in the emergency room revealed right upper lobe opacification. Patient was admitted to medical floor for further evaluation and treatment, MRI of the brain was ordered to rule out metastatic disease, pulmonary consultation and oncology consultation were requested. Past medical history is significant for history of COPD history of abdominal aortic aneurysm with repair, history of tobacco use, and previous history of DVT On 03/15/2022 patient was seen and examined on the medical floor she is alert and oriented 3 in no apparent distress she was having an episode of severe shortness of breath and wheezing this morning, she is receiving inhaled bronchodilators, IV Solu-Medrol was added to her regimen. Otherwise patient denies any complaints there is no fever or chills no headache or dizziness no chest pain no nausea or vomiting no abdominal pain no diarrhea no blood in the stools no burning with urination no frequency or urgency and no hematuria. Objective - Vital Signs Vital signs: Vital Signs Temp 100.8 F H 03/15/22 05:00 Pulse 68 03/15/22 08:00 Resp 16 03/15/22 05:00 BP 118/71 03/15/22 05:00 Pulse Ox 96 03/15/22 05:00 FiO2 Intake & Output 03/14/22 03/15/22 03/15/22 18:59 06:59 18:59 Intake Total 0 Balance 0 Intake: Oral 0 Other: Voiding Method Toilet # Voids 2 1 - Exam In general patient is alert and oriented x 3 in no distress HEENT head normocephalic and atraumatic Neck is supple no JVD no goiter no lymphadenopathy no carotid bruit Chest examination reveals a scattered crackles in both lung mauricio no wheezing Cardiac exam reveals regular heart sounds S1 and S2 no gallops no murmurs Abdomen is soft nontender no organomegaly with normal bowel sounds Extremity exam reveals no edema no cyanosis or clubbing Neurological examination reveals no gross focal deficits - Labs CBC & Chem 7: 03/15/22 05:54 03/15/22 05:54 Labs: Abnormal Lab Results - Last 24 Hours (Table) 03/14/22 03/14/22 03/15/22 Range/Units 13:43 13:43 05:54 WBC 12.8 H 10.45 H (3.8-10.6) k/uL RBC 3.26 L 3.35 L (3.80-5.40) m/uL Hgb 8.7 L 8.3 L (11.4-16.0) gm/dL Hct 28.2 L 28.4 L (34.0-46.0) % MCH 24.8 L (27.0-32.0) pg MCHC 30.9 L 29.2 L (31.0-37.0) g/dL RDW 15.0 H (11.5-14.5) % Neutrophils # 11.0 H 8.44 H (1.3-7.7) k/uL Sodium 132 L (137-145) mmol/L Chloride 95 L (98-107) mmol/L Carbon Dioxide 31 H (22-30) mmol/L BUN/Creatinine Ratio (12.00-20.00) Ratio Glucose 136 H (74-99) mg/dL Total Protein (6.2-8.2) g/dL Albumin 3.2 L (3.5-5.0) g/dL Albumin/Globulin Ratio (1.60-3.17) g/dL 03/15/22 Range/Units 05:54 WBC (3.8-10.6) k/uL RBC (3.80-5.40) m/uL Hgb (11.4-16.0) gm/dL Hct (34.0-46.0) % MCH (27.0-32.0) pg MCHC (31.0-37.0) g/dL RDW (11.5-14.5) % Neutrophils # (1.3-7.7) k/uL Sodium (137-145) mmol/L Chloride 95 L (98-107) mmol/L Carbon Dioxide 29.3 H (22-30) mmol/L BUN/Creatinine Ratio 21.33 H (12.00-20.00) Ratio Glucose (74-99) mg/dL Total Protein 5.9 L (6.2-8.2) g/dL Albumin 3.0 L (3.5-5.0) g/dL Albumin/Globulin Ratio 1.03 L (1.60-3.17) g/dL Assessment and Plan Plan: The right upper lobe pulmonary mass, patient is admitted to oncology floor, pulmonary consultation was requested for possible bronchoscopy and biopsy, MRI of the brain was ordered to rule out metastatic brain disease. Underlying history of COPD, stable at this time no evidence of exacerbation, home inhalers reviewed and reordered Underlying history of tobacco use Previous history of abdominal aortic aneurysm with repair Previous history of lower extremity DVT At this time patient was seen and examined Home medications reviewed and reordered Consultation for pulmonary and oncology requested For DVT prophylaxis we will use subcu Lovenox For GI prophylaxis we will use famotidine Will follow closely
--- NOTE | 2022-03-15 17:35 | XR ---
EXAMINATION TYPE: XR chest 1V portable DATE OF EXAM: 03/15/2022 COMPARISON: 03/13/2022 INDICATION: Post bronchoscopy TECHNIQUE: Single frontal view of the chest is obtained. FINDINGS: The heart size is normal. The pulmonary vasculature is normal. There is a large right upper lung field opacification. No pneumothorax is evident. Some apical thicke shahzad may be present. IMPRESSION: 1. No pneumothorax post bronchoscopy. 2. Right apical opacification appears stable from comparison.
[2022-03-15 23:25] LABS: Appearance,BF Bloody
[2022-03-16] MEDS: methylPREDNISolone SOD SUCCI 125 MG/2 ML VIAL IV SCH ×3 (03:02→15:18)
[2022-03-16] MEDS: IPRATROPIUM-ALBUTEROL 3 ML NEB INHALATION SCH ×4 (05:23→15:42)
[2022-03-16] MEDS: SYMBICORT 80-4.5 MCG INHALER INHALATION SCH (07:48)
[2022-03-16] MEDS: ENOXAPARIN 40 MG/0.4 ML SYRINGE SQ SCH ×2 (08:39→08:47)
[2022-03-16] MEDS: HYDROcodone/APAP 10-325MG 1 EACH TAB PO SCH (08:39)
[2022-03-16] MEDS: CYANOCOBALAMIN 500 MCG TAB PO SCH (08:40)
[2022-03-16] MEDS: SENNOSIDES-DOCUSATE SODIUM 1 EACH TAB PO SCH ×2 (08:40→08:47)
[2022-03-16] MEDS: FAMOTIDINE 20 MG TAB PO SCH (08:40)
[2022-03-16] MEDS: LIDOCAINE 5% PATCH TOPICAL SCH (08:41)
[2022-03-16 10:36] LABS: Basophils # (A) 0.01 X 10*3/uL (0.00-0.10); Basophils % (A) 0.1 %; Eosinophils # (A) 0 X 10*3/uL (0.04-0.35); Eosinophils % (A) 0 %; HCT 25.6 % (37.2-46.3); HGB 7.5 g/dL (12.0-15.0); Immature Grans, Automated 0.5 %; Lymphocytes % (A) 1.7 %; MCH 24.7 pg (27.0-32.0); MCHC 29.3 g/dL (32.0-37.0); MCV 84.2 fL (80.0-97.0); Monocytes # (A) 0.14 X 10*3/uL (0.20-1.00); Monocytes % (A) 1.2 %; NRBC Per 100 WBC 0 /100 WBCS (0.0-0.0); Neutrophils # (A) 11.25 X 10*3/uL (1.80-7.70); Neutrophils % (A) 96.5 %; Platelet Count 302 X 10*3/uL (140-440); RBC 3.04 X 10*6/uL (4.10-5.20); WBC 11.66 X 10*3/uL (4.50-10.00)
[2022-03-16 11:13] LABS: ALT 16 U/L (8-44); AST 15 U/L (13-35); Albumin/Globulin Ratio 1.11 (1.60-3.17); Alkaline Phosphatase 57 U/L (41-126); Blood Urea Nitrogen 14.3 mg/dL (9.0-27.0); Calcium 9.8 mg/dL (8.7-10.3); Chloride 95 mmol/L (96-109); Globulin 2.7 g/dL (1.6-3.3); Glucose 178 mg/dL (70-110); Sodium 135 mmol/L (135-145); Total Bilirubin <0.15 mg/dL (0.30-1.20); Total Protein 5.7 g/dL (6.2-8.2)
--- NOTE | 2022-03-16 11:19 | P.PN ---
Subjective Progress Note Date: 03/16/22 Principal diagnosis: lung mass In f/u today pt states she wants to go home. She is not real interested in any further pain mgmt, she states she will take some motrin. Objective - Vital Signs Vital signs: Vital Signs Temp 97.7 F 03/16/22 05:00 Pulse 75 03/16/22 07:59 Resp 16 03/16/22 05:00 BP 110/69 03/16/22 05:00 Pulse Ox 93 L 03/16/22 05:00 FiO2 Intake & Output 03/15/22 03/16/22 03/16/22 18:59 06:59 18:59 Intake Total 300 Balance 300 Weight 39.009 kg Intake: IV 300 Other: # Voids 3 3 1 - Constitutional General appearance: Present: cooperative, no acute distress, thin - EENT Eyes: Present: anicteric sclerae, EOMI ENT: Present: hearing grossly normal - Respiratory Respiratory: bilateral: diminished - Cardiovascular Rhythm: regular Heart sounds: normal: S1, S2 Abnormal Heart Sounds: Absent: systolic murmur, diastolic murmur, rub, S3 Gallop, S4 Gallop, click, other - Peripheral edema leg Peripheral Edema: bilateral: None - Gastrointestinal General gastrointestinal: Present: normal bowel sounds, soft - Neurologic Neurologic: Present: CNII-XII intact - Musculoskeletal Musculoskeletal: Present: strength equal bilaterally - Psychiatric Psychiatric: Present: A&O x's 3, appropriate affect, intact judgment & insight - Labs CBC & Chem 7: 03/16/22 06:09 03/16/22 06:09 Labs: Abnormal Lab Results - Last 24 Hours (Table) 03/15/22 03/16/22 03/16/22 Range/Units 05:54 06:09 06:09 WBC 11.66 H (4.50-10.00) X 10*3/uL RBC 3.04 L (4.10-5.20) X 10*6/uL Hgb 7.5 L (12.0-15.0) g/dL Hct 25.6 L (37.2-46.3) % MCH 24.7 L (27.0-32.0) pg MCHC 29.3 L (32.0-37.0) g/dL RDW 15.0 H (11.5-14.5) % Immature Gran # 0.06 H (0.00-0.04) X 10*3/uL Neutrophils # 11.25 H (1.80-7.70) X 10*3/uL Lymphocytes # 0.20 L (0.90-5.00) X 10*3/uL Monocytes # 0.14 L (0.20-1.00) X 10*3/uL Eosinophils # 0 L (0.04-0.35) X 10*3/uL Chloride 95 L (96-109) mmol/L Creatinine 0.5 L (0.6-1.5) mg/dL BUN/Creatinine Ratio 28.60 H (12.00-20.00) Ratio Glucose 178 H (70-110) mg/dL Total Bilirubin <0.15 L (0.30-1.20) mg/dL Total Protein 5.7 L (6.2-8.2) g/dL Albumin 3.0 L (3.8-4.9) g/dL Albumin/Globulin Ratio 1.11 L (1.60-3.17) g/dL Procalcitonin 0.10 H (0.02-0.09) ng/mL Microbiology - Last 24 Hours (Table) 03/15/22 16:00 Gram Stain - Preliminary Bronchoalviolar Lavage - Right Bronchial Washings Culture - Preliminary 03/15/22 16:00 Acid Fast Bacilli Culture - Preliminary Bronchoalviolar Lavage - Right 03/15/22 16:00 Fungal Culture - Preliminary Bronchoalviolar Lavage - Right Assessment and Plan (1) Intractable pain Current Visit: Yes Status: Acute Priority: High Code(s): R52 - PAIN, UNSPECIFIED SNOMED Code(s): 78872090 (2) Altered mental status Current Visit: Yes Status: Acute Priority: High Code(s): R41.82 - ALTERED MENTAL STATUS, UNSPECIFIED SNOMED Code(s): 466792692 (3) Lung mass Current Visit: Yes Status: Acute Priority: High Code(s): R91.8 - OTHER NONSPECIFIC ABNORMAL FINDING OF LUNG FIELD SNOMED Code(s): 008495117 Plan: Pulmonary has performed lung biopsy and station 7 LN biopsy. NGS and PD-L1 testing on tissue to evaluate for possible mutations and targeted therapy will be ordered. Staging scans outpatient. Patient is not complaining of progressive pain at this time. She will continue on her home medicines for pain as prescribed. MRI brain neg for mets. No confusion noted today. Follow-up appointment in the discharge plan. Attests: I have seen and examined pt, performed H&P, developed impression and plan of care. Discussed with dictator, agree with dictation, documented as a scribe
[2022-03-16 12:49] VITALS: BP 100/43; PULSE 50; RESP 18; TEMP 98.2
--- NOTE | 2022-03-16 12:49 | P.PN ---
Subjective Progress Note Date: 03/16/22 03/16/2022, the patient is doing well. 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 She is doing well with no specific complaint. No chest pain. No altered mentation. The patient is stable enough to be discharged home to be followed up on outpatient basis regarding the biopsy results. The patient's white cell count is at 11.6 with a hemoglobin of 7.5. Platelet count is at 302. Electrolytes are all within normal limits with a stable creatinine. She is tolerating her diet. No nausea. No vomiting. No chest pain. No other compla ints otherwise. Objective - Vital Signs Vital signs: Vital Signs Temp 97.7 F 03/16/22 05:00 Pulse 72 03/16/22 11:59 Resp 16 03/16/22 05:00 BP 110/69 03/16/22 05:00 Pulse Ox 93 L 03/16/22 05:00 FiO2 Intake & Output 03/15/22 03/16/22 03/16/22 18:59 06:59 18:59 Intake Total 300 Balance 300 Weight 39.009 kg Intake: IV 300 Other: # Voids 3 3 1 - Exam Calm and comfortable, breathing is nonlabored, body mass index is 16.8 Head exam was generally normal. There was no scleral icterus or corneal arcus. Mucous membranes were moist. Neck was supple and without jugular venous distension, thyromegaly, or carotid bruits. Carotids were easily palpable bilaterally. There was no adenopathy. Lungs sounds are diminished bilaterally along with that there is some scattered expiratory wheezes throughout the lung mauricio Cardiac exam revealed the PMI to be normally situated and sized. The rhythm was regular and no extrasystoles were noted during several minutes of auscultation. The first and second heart sounds were normal and physiologic splitting of the second heart sound was noted. There were no murmurs, rubs, clicks, or gallops. Abdominal exam revealed normal bowel sounds. The abdomen was soft, non-tender, and without masses, organomegaly, or appreciable enlargement of the abdominal aorta. Examination of the extremities revealed easily palpable radial, femoral and pedal pulses. There was no cyanosis, clubbing or edema. Neurologically the patient was awake and alert at the time of my evaluation. No focal neurological deficits. - Labs CBC & Chem 7: 03/16/22 06:09 03/16/22 06:09 Labs: Abnormal Lab Results - Last 24 Hours (Table) 03/15/22 03/16/22 03/16/22 Range/Units 05:54 06:09 06:09 WBC 11.66 H (4.50-10.00) X 10*3/uL RBC 3.04 L (4.10-5.20) X 10*6/uL Hgb 7.5 L (12.0-15.0) g/dL Hct 25.6 L (37.2-46.3) % MCH 24.7 L (27.0-32.0) pg MCHC 29.3 L (32.0-37.0) g/dL RDW 15.0 H (11.5-14.5) % Immature Gran # 0.06 H (0.00-0.04) X 10*3/uL Neutrophils # 11.25 H (1.80-7.70) X 10*3/uL Lymphocytes # 0.20 L (0.90-5.00) X 10*3/uL Monocytes # 0.14 L (0.20-1.00) X 10*3/uL Eosinophils # 0 L (0.04-0.35) X 10*3/uL Chloride 95 L (96-109) mmol/L Creatinine 0.5 L (0.6-1.5) mg/dL BUN/Creatinine Ratio 28.60 H (12.00-20.00) Ratio Glucose 178 H (70-110) mg/dL Total Bilirubin <0.15 L (0.30-1.20) mg/dL Total Protein 5.7 L (6.2-8.2) g/dL Albumin 3.0 L (3.8-4.9) g/dL Albumin/Globulin Ratio 1.11 L (1.60-3.17) g/dL Procalcitonin 0.10 H (0.02-0.09) ng/mL Microbiology - Last 24 Hours (Table) 03/15/22 16:00 Gram Stain - Preliminary Bronchoalviolar Lavage - Right Bronchial Washings Culture - Preliminary 03/15/22 16:00 Acid Fast Bacilli Culture - Preliminary Bronchoalviolar Lavage - Right 03/15/22 16:00 Fungal Culture - Preliminary Bronchoalviolar Lavage - Right Assessment and Plan Plan: Large right upper lobe mass with central cavitation along with some peripheral airspace disease and mediastinal lymphadenopathy, highly suggestive underlying primary bronchogenic carcinoma. The patient is post bronchoscopy awaiting the results Chest wall pain likely secondary to local invasion from an underlying malignancy COPD Chronic smoking Shortness of breath secondary to above Abdominal aortic aneurysm postrepair Plan The patient can be discharged home on a prednisone burst taper Give the patient a home nebulizer Albuterol Atrovent nebulized treatments 3 times a day [id number] on outpatient basis Follow-up with me in the office regarding the results of the biopsy and follow- up with oncology. Clear for discharge from the pulmonary standpoint
== END 2022-03-16 15:55 | disposition home or self-care (01) | DRG 182 ==
LOC: EC 13:12 → 5NMEDONC 14:40
PROVIDERS: ADMIT Internal Medicine; ATTEND Internal Medicine
PROC: 0B9C8ZX Drainage of Right Upper Lung Lobe, Via Natural or Artificial Opening Endoscopic, Diagnostic (ICD-10-PCS; principal; 2022-03-15 07:30)
PROC: 0B948ZX Drainage of Right Upper Lobe Bronchus, Via Natural or Artificial Opening Endoscopic, Diagnostic (ICD-10-PCS; principal; 2022-03-15 07:30)
PROC: 07978ZX Drainage of Thorax Lymphatic, Via Natural or Artificial Opening Endoscopic Approach, Diagnostic (ICD-10-PCS; principal; 2022-03-15 07:30)
DX: C34.11 Malignant neoplasm of upper lobe, right bronchus or lung (principal); J43.9 Emphysema, unspecified; G89.3 Neoplasm related pain (acute) (chronic); R41.82 Altered mental status, unspecified; J98.09 Other diseases of bronchus, not elsewhere classified; R59.0 Localized enlarged lymph nodes; M25.511 Pain in right shoulder; F17.210 Nicotine dependence, cigarettes, uncomplicated; Z88.8 Allergy status to other drugs, medicaments and biological substances; Z79.899 Other long term (current) drug therapy; Z86.718 Personal history of other venous thrombosis and embolism; Z87.11 Personal history of peptic ulcer disease; Z86.79 Personal history of other diseases of the circulatory system; Z87.19 Personal history of other diseases of the digestive system
CPT/HCPCS: 31623; 31624; 31625; 31652; 70553; 71045; 71046; 80053; 84145; 85025; 85610; 85730; 87070; 87102; 87116; 87205; 87206; 87252; 87496; 87498; 87502; 87529; 87634; 87798; 88104; 88108; 88173; 88305; 89050; 94640; 96374; 96376; 99285